=== PATIENT | female | born 1945 | race Caucasian/White ===

== ENCOUNTER 2017-02-09 07:02 | Observation (INO) | payer MEDICARE, BC ==
[2017-02-09] MEDS ORDERED: ATROPINE SULFATE 1 MG/10 ML SYR ONE (07:44)
[2017-02-09] MEDS ORDERED: EPINEPHrine 1:10,000 1 MG/10 ML SYR ONE (07:44)
[2017-02-09] MEDS ORDERED: FLUMAZENIL 0.5 MG/5 ML VIAL IV ONE (07:44)
[2017-02-09] MEDS ORDERED: NALOXONE HCL 0.4 MG/ML VIAL ONE (07:45)
[2017-02-09] MEDS ORDERED: DIPHENHYDRAMINE 50 MG/ML VIAL ONE (07:45)
[2017-02-09] MEDS ORDERED: LIDOCAINE HCL 2% 20 ML VIAL ONE (07:47)
--- NOTE | 2017-02-09 10:17 | RADIOLOGY REPORT ---
HISTORY: Chest pain post colonoscopy. COMPARISON: None. FINDINGS: 1 view of the chest obtained. There is no consolidation. There is no pleural effusion. There is no pneumothorax. Mild cardiomegaly is noted, the mediastinal silhouette is unremarkable. There is no abnormality of the pulmonary vessels. There is no focal lung parenchymal nodule. There is no bone l esion. There is subdiaphragmatic lucency which may represent distended colon or intraperitoneal air. IMPRESSION: Mild cardiomegaly, no acute lung parenchymal finding. Subdiaphragmatic lucency noted which may represent distended colon or free air, recommend CT of the a bdomen and pelvis. Critical results were communicated to Dr. Swan's nurse at 02/09/2017 10:09 AM. I have also left a ph one message on Dr. Swan's cellular phone. Final Electronic Signature: This report was electronically signed by Sin Flores MD, FACR on 2016 10:14 AM. josé /
--- NOTE | 2017-02-09 10:55 | RADIOLOGY REPORT ---
HISTORY: Evaluate for free air. COMPARISON: Chest x-ray same day TECHNIQUE: Frontal and lateral radiographs of the chest. FINDINGS: Subdiaphragmatic air is again identified consistent with pneumoperitoneum. Mildly distended pulmonary vasculature probably normal variant. No evidence of consolidation. Cardiomediastinal silhouette is t op limits of normal in size. Findings discussed with Elle Herrera nurse at 10:50 AM. IMPRESSION: Unchanged pneumoperitoneum; recommend CT abdomen and pelvis further evaluation. Final Electronic Signature: This report was electronically signed by Deepak Marie MD on 02/09/2017 10 :52 AM. zoila /
[2017-02-09] MEDS ORDERED: HOME MEDICATION LIST NEEDED 1 EA EACH MC ONE (12:03)
[2017-02-09] MEDS ORDERED: NORMAL SALINE 1,000 ML IV ONE (12:17)
--- NOTE | 2017-02-09 12:17 | CONSULTATION ---
DATE OF CONSULTATION: 02/09/17 CHIEF COMPLAINT: Abdominal pain after colonoscopy. HISTORY OF PRESENT ILLNESS: The patient had a colonoscopy done on a routine basis today because of a personal history of colon polyps. When the scope was inserted into the ascending colon barotrauma was noted after an uneventful intubation until that point. The barotrauma appeared to be minor and there were tiny linear hemorrhagic spots that were longitudinally arranged throughout the cecum and proximal ascending colon. There was no sign of a deep injury. Seeing this I presumed that collagenous colitis was present even though the patient had not complained of diarrhea preop and I took random colon biopsies. She also had a small colon polyp in the transverse colon which was resected. The transverse colon polyp was a 5 mm or so polyp that was resected with a cold snare in an uneventful manner. The scope was withdrawn. The patient did well and then when she woke up in recovery she complained of right sided right upper quadrant abdominal pain radiating up into the right chest. This lasted for 20 minutes or so and then went away and she has since then been asymptomatic. She has no shortness of breath, no abdominal pain, no pleurisy, and no fevers or chills. Suspecting an air leak I got a chest x-ray which confirmed some free air on the right side. PHYSICAL EXAMINATION GENERAL: The patient is alert and oriented times 3. She is in no acute distress. She does not seem to be drowsy from the medication received during the procedure. NECK: Supple. There is no crepitance anywhere in the neck or the shoulders. LUNGS: Clear to auscultation and percussion. CARDIAC: S1 and S2 are normal. There is a soft flow murmur at the left sternal border. ABDOMEN: She is entirely nontender. The bowel sounds are normal. She is a little tympanitic in the upper abdomen. EXTREMITIES: Warm, dry and perfuse. VITAL SIGNS: Normal. IMAGING: Chest x-ray shows free air present under the right hemidiaphragm. IMPRESSION: The patient probably has collagenous colitis and I think she probably has a microperforation due to this and due to barotrauma. I do not think it is likely that she has a significant spillage of intestinal contents but it is hard to say that for sure. RECOMMENDATION: We are going to give her Zofran. I spoke to Dr. Guido who will admit her and watch her in the hospital. If she shows any signs of sepsis or deterioration then will probably get a CAT scan and consider surgery. I think that the patient could be discharged tomorrow if she remains entirely asymptomatic. Copy to MD ELISA Mitchell
[2017-02-09 12:31] LABS: BASOPHILS 0.2 % (0.0-2.0); EOSINOPHILS 0.1 % (0.0-6.0); HEMATOCRIT 42.9 % (36.0-48.0); HEMOGLOBIN 14.9 g/dL (12.0-16.0); LYMPHOCYTES 6.6 % (20.0-40.0); LYMPHOCYTES# 1.2 X 10^3uL (0.8-3.8); MEAN CELL VOLUME 90.9 fL (80.0-100.0); MEAN CORPUS. HGB CONCENTRATION 34.8 g/dL (32.0-36.0); MEAN CORPUSCULAR HEMOGLOBIN 31.6 pg (29.0-35.0); MEAN PLATELET VOLUME 7.6 fL (7.4-10.4); MONOCYTES 3.3 % (2.0-10.0); MONOCYTES# 0.6 X 10^3uL (0.2-1.0); NEUTROPHILS 89.8 % (54.0-75.0); NEUTROPHILS# 15.8 X 10^3uL (2.6-6.7); RED BLOOD COUNT 4.72 X 10^6uL (4.20-6.10); RED CELL DISTRIBUTION WIDTH 12.7 % (11.5-14.5); WHITE BLOOD COUNT 17.6 X 10^3uL (3.9-10.7)
[2017-02-09 12:41] LABS: CALCIUM 9.3 mg/dL (8.4-10.2); POTASSIUM 4.4 mmol/L (3.5-5.1)
[2017-02-09] MEDS ORDERED: PIPERACILLIN /TAZO 2.25 GM/10 ML VIAL IV SCH (13:00)
[2017-02-09] MEDS ORDERED: NORMAL SALINE 1,000 ML IV SCH ×2 (13:00→19:01)
[2017-02-09] MEDS ORDERED: PIPERACILLIN /TAZO 3.375 GM/10 ML VIAL IV ONE (13:07)
[2017-02-09] MEDS ORDERED: NORMAL SALINE MINI-BAG+ 100 ML IV ONE (13:14)
[2017-02-09] MEDS: PIPERACILLIN /TAZO 3.375 GM/10 ML VIAL IV SCH ×2 (13:16→19:10)
[2017-02-09] MEDS: SODIUM CHLORIDE IV SCH ×2 (13:17→19:11)
[2017-02-09] MEDS: ACETAMINOPHEN 325 MG TABLET PO PRN ×2 (13:27→19:19)
--- NOTE | 2017-02-09 13:27 | RADIOLOGY REPORT ---
HISTORY: Evaluate for perforated viscus. COMPARISON: Chest x-ray same date 10:34 AM FINDINGS: 1 view of the chest obtained. There is no consolidation. There is no pleural effusion. There is no pneumothorax. Mild cardiomegaly is noted, the mediastinal silhouette is unremarkable. There is no abnormality of the pulmonary vessels. There is no focal lung parenchymal nodule. There is no bone l esion. Persistent intraperitoneal air is noted on the anterior x-ray. IMPRESSION: Intraperitoneal air noted similar to prior study. The referring physician is aware. Final Electronic Signature: This report was electronically signed by Sin Flores MD, FACR on 2016 1:25 PM. josé /
[2017-02-09 15:21] LABS: BASOPHIL# 0.1 X 10^3uL (0.0-0.1); BASOPHILS 0.7 % (0.0-2.0); EOSINOPHILS 0.1 % (0.0-6.0); HEMATOCRIT 40.6 % (36.0-48.0); HEMOGLOBIN 14.2 g/dL (12.0-16.0); LYMPHOCYTES# 0.9 X 10^3uL (0.8-3.8); MEAN CELL VOLUME 89.7 fL (80.0-100.0); MEAN CORPUS. HGB CONCENTRATION 35.1 g/dL (32.0-36.0); MEAN CORPUSCULAR HEMOGLOBIN 31.5 pg (29.0-35.0); MEAN PLATELET VOLUME 7.8 fL (7.4-10.4); MONOCYTES 4.7 % (2.0-10.0); MONOCYTES# 0.9 X 10^3uL (0.2-1.0); NEUTROPHILS 89.5 % (54.0-75.0); NEUTROPHILS# 16.4 X 10^3uL (2.6-6.7); RED BLOOD COUNT 4.52 X 10^6uL (4.20-6.10); RED CELL DISTRIBUTION WIDTH 12.5 % (11.5-14.5); WHITE BLOOD COUNT 18.3 X 10^3uL (3.9-10.7)
[2017-02-09] MEDS ORDERED: ENALAPRILAT DIHYDRATE 1.25 MG/ML VIAL IV PRN (15:58)
[2017-02-09] MEDS ORDERED: DEXTROSE 50% WATER 25 GM/50 ML SYR IV PRN (15:58)
--- NOTE | 2017-02-09 16:58 | PROGRESS NOTE:General Surgery ---
Assessment and Plan - Date of Encounter Date of Encounter: 02/09/17 (1) Perforated abdominal viscus Status: Acute Assessment and plan: Thus far stable. CXR at 1pm still shows free air. Current Visit: Yes - Time Spent With Patient Total time spent with greater than 50% in coordination of care (as documented) at patient's floor/unit and/or counseling patient: LORENZO: Gen Surg PN Subjective Patient reports: afebrile, bowel movement, feels better, other (has been NPO except for ice chips.), no blood in stool, no chest pain, no nausea, no no new complaints, no shortness of breath LORENZO: Gen Surgery PN Obj Exam - Latest Vital Signs and I&O Latest Vital Signs/I&O: Vital Signs Temp 37.1 C 02/09/17 15:00 Pulse 76 02/09/17 15:00 Resp 20 02/09/17 15:28 BP 131/76 02/09/17 15:00 Pulse Ox 90 02/09/17 15:28 Intake & Output 02/08/17 02/09/17 02/09/17 17:59 05:59 17:59 Weight 91.342 kg Other: Urine Appearance Clear Urine Color Yellow Voiding Method Toilet - Exam Abdomen exam: tender (mild at level of umbilicus on the right.), bowel sounds, soft, surgical scars (lap choly scars.) - Lab Labs: Laboratory Last Values WBC 18.3 X 10^3uL (3.9-10.7) H 02/09/17 15:00 RBC 4.52 X 10^6uL (4.20-6.10) 02/09/17 15:00 Hgb 14.2 g/dL (12.0-16.0) 02/09/17 15:00 Hct 40.6 % (36.0-48.0) 02/09/17 15:00 MCV 89.7 fL (80.0-100.0) 02/09/17 15:00 MCH 31.5 pg (29.0-35.0) 02/09/17 15:00 MCHC 35.1 g/dL (32.0-36.0) 02/09/17 15:00 RDW 12.5 % (11.5-14.5) 02/09/17 15:00 Plt Count 244 X 10^3uL (130-440) 02/09/17 15:00 MPV 7.8 fL (7.4-10.4) 02/09/17 15:00 Neutrophils % 89.5 % (54.0-75.0) H 02/09/17 15:00 Lymphocytes % 5.0 % (20.0-40.0) L 02/09/17 15:00 Eosinophils % 0.1 % (0.0-6.0) 02/09/17 15:00 Basophils % 0.7 % (0.0-2.0) 02/09/17 15:00 Neutrophils # 16.4 X 10^3uL (2.6-6.7) H 02/09/17 15:00 Lymphocytes # 0.9 X 10^3uL (0.8-3.8) 02/09/17 15:00 Monocytes 4.7 % (2.0-10.0) 02/09/17 15:00 Monocytes # 0.9 X 10^3uL (0.2-1.0) 02/09/17 15:00 Eosinophils # 0.0 X 10^3uL (0.0-0.4) 02/09/17 15:00 Basophils # 0.1 X 10^3uL (0.0-0.1) 02/09/17 15:00 Sodium 138 mmol/L (137-145) 02/09/17 12:21 Potassium 4.4 mmol/L (3.5-5.1) 02/09/17 12:21 Chloride 100 mmol/L (98-107) 02/09/17 12:21 Carbon Dioxide 24 mmol/L (22-30) 02/09/17 12:21 BUN 23 mg/dL (7-17) H 02/09/17 12:21 Creatinine 1.0 mg/dL (0.5-1.0) 02/09/17 12:21 GFR Calculation 58 mL/min 02/09/17 12:21 Glucose 118 mg/dL (70-100) H 02/09/17 12:21 Calcium 9.3 mg/dL (8.4-10.2) 02/09/17 12:21 Quality Questions - VTE Prophylaxis Assessment VTE Present on Admission?: No Patient at risk for venous thromboembolism?: Yes VTE Risk Level: Low Risk Pharmaceutical VTE prophylaxis contraindication reason: not indicated Mechanical VTE prophylaxis contraindication reason: not indicated
[2017-02-09] MEDS: INSULIN LISPRO 100 UNIT/ML ML SUBCUT SCH (18:00)
[2017-02-09] MEDS ORDERED: NORMAL SALINE 100 ML IV ONE (19:17)
[2017-02-09] MEDS ORDERED: FAMOTIDINE IN SALINE, ISO-OSM 20 MG/50 ML PIGGYBACK IV SCH (21:00)
[2017-02-10] MEDS: INSULIN LISPRO 100 UNIT/ML ML SUBCUT SCH ×2 (01:31→07:34)
[2017-02-10] MEDS: PIPERACILLIN /TAZO 3.375 GM/10 ML VIAL IV SCH (01:32)
[2017-02-10] MEDS: SODIUM CHLORIDE IV SCH (01:32)
[2017-02-10] MEDS ORDERED: NORMAL SALINE 100 ML IV ONE ×2 (01:48→08:22)
[2017-02-10] MEDS: ACETAMINOPHEN 325 MG TABLET PO PRN (02:26)
[2017-02-10 06:23] LABS: BASOPHILS 0.4 % (0.0-2.0); EOSINOPHILS 1.1 % (0.0-6.0); EOSINOPHILS# 0.1 X 10^3uL (0.0-0.4); HEMATOCRIT 41.8 % (36.0-48.0); HEMOGLOBIN 14.8 g/dL (12.0-16.0); LYMPHOCYTES 19.2 % (20.0-40.0); LYMPHOCYTES# 1.9 X 10^3uL (0.8-3.8); MEAN CELL VOLUME 89.9 fL (80.0-100.0); MEAN CORPUS. HGB CONCENTRATION 35.4 g/dL (32.0-36.0); MEAN CORPUSCULAR HEMOGLOBIN 31.9 pg (29.0-35.0); MEAN PLATELET VOLUME 7.8 fL (7.4-10.4); MONOCYTES 5.2 % (2.0-10.0); MONOCYTES# 0.5 X 10^3uL (0.2-1.0); NEUTROPHILS 74.1 % (54.0-75.0); NEUTROPHILS# 7.5 X 10^3uL (2.6-6.7); RED BLOOD COUNT 4.65 X 10^6uL (4.20-6.10); RED CELL DISTRIBUTION WIDTH 12.7 % (11.5-14.5)
[2017-02-10 06:26] LABS: CALCIUM 9.3 mg/dL (8.4-10.2); CREATININE 1.2 mg/dL (0.5-1.0); POTASSIUM 4.2 mmol/L (3.5-5.1)
[2017-02-10 06:43] VITALS: BP 144/96; PULSE 73; RESP 14; TEMP 98.8; O2SAT 90
--- NOTE | 2017-02-10 07:31 | HISTORY & PHYSICAL ---
DATE OF VISIT: 02/09/17 INFECTION CONTROL NURSE: Alvaro Montano MD REFERRING PHYSICIAN: Guillermo Guido MD PRIMARY CARE PHYSICIAN: Zulema Hodge MD REASON FOR CONSULTATION: Colonic perforation and comorbid management. HISTORY OF PRESENT ILLNESS: The patient is a 71-year-old lady with past medical history notable for irritable bowel sclerosis with echocardiogram 01/2016 showing sclerosis without stenosis. She has obesity, chronic kidney disease, type 2 diabetes, hypertension, dyslipidemia, and a history of colonic polyps and underwent colonoscopy after bowel preparation this morning. Dr. Swan performed the procedure and removed a polyp from the right descending colon right at the hepatic flexure. Patient had right upper quadrant pain, post procedure and chest x-ray demonstrated fluid interposed between the diaphragm and liver with a lateral view corroborating intraabdominal free gases. A colonic scope was performed with CO2 expansion of the bowel rather than air. Patient is currently NPO. She currently has no cough, cold, congestion or fever. She has no nausea and is actually hungry. She has mild ache in the right upper quadrant. She has passed flatus and no other abdominal pain. There is no vomiting. No dysuria. Remainder of review of systems is otherwise unremarkable. There has been no rectal bleeding. Again, patient did undergo a single polypectomy/biopsy. PAST MEDICAL HISTORY 1. Irritable bowel sclerosis. 2. Obesity. 3. Chronic kidney disease with baseline creatinine of 1.3 and current 1.1. 4. Diabetes mellitus type 2 controlled on Metformin. 5. Essential hypertension. 6. History of asymptomatic hematuria. 7. Dyslipidemia. 8. Urinary incontinence. PAST SURGICAL HISTORY 1. Cholecyst[place] [address] Guido. 2. Cataract surgery by Dr. Braun. 3. Bartholin cyst treatment by Dr. Voss. HEALTH CARE MAINTENANCE: Colonoscopy in 2011 with a tubular adenoma. Repeat C- scope was due this year and rationale for current study. ALLERGIES: No known drug allergies. MEDICATIONS Baby aspirin once daily. Calcium carbonate 500 mg 1 tablet twice daily. Metformin 500 mg twice daily. Zocor 20 mg q.h.s. Vitamin D3 1000 International Units once daily. Zestoretic 20/25 mg tablets, 1 tablet daily. FAMILY HISTORY: Diabetes and coronary disease including hypertension and stroke in her father who at age 71. Her mother had hypertension and from a stroke at age 78. No family history of breast or colon cancer. Sister with hypertension and depression, as well as type 2 diabetes mellitus. Another sister at age 33 from suicide. SOCIAL HISTORY: She drinks 1 daniella every 6 months. 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 She has been since 1960. She is P2, G2 with normal spontaneous vaginal deliveries x2 in 1961 and 1963 with 5 grandchildren, although 1 grandson at age 29 in a motor vehicle accident. She resides largely in [place] but also resides in [place] 3 months out of the year in September, October and November. She is a lifelong nonsmoker. REVIEW OF SYSTEMS: Per History of Present Illness. PHYSICAL EXAMINATION VITAL SIGNS: Temperature 37.1, blood pressure is in the 130-160s/70-80s, with heart rates in the 70-80s and respiratory rate 16-20. She is saturating 90% on room air and rates her pain at 2-4/10. She is 91 kilograms. GENERAL: She is pleasant.Seated at side of the bed but was able to lay supine for portions of the examination. There is No jaundice, anemia, cyanosis, clubbing or lymphadenopathy. NECK: Supple no masses or bruits. CARDIAC: With murmur, most prominent in the right upper sternal border without radiation to her right carotid although it is present and notable in the Erbs point and left lower sternal border as well. There is no right ventricular heave. PMI is nondisplaced and no further abnormal cardiac sounds including no gallop noted. RESPIRATORY: Good air entry in the left base, decreased in the right base but no adventitial sounds. ABDOMEN: Protuberant. Bowel sounds are decreased but present. She is tender in the right upper quadrant although without guarding or peritonitis. Remainder of the abdominal exam is unremarkable. No masses are identified. LOWER EXTREMITIES: She has 2+ dorsal pedal pulses and no edema. LABS: Markedly elevated white count at 18.3, hemoglobin at 14.2, MCV of 89 and platelet count of 244. White count is 90% neutrophils. Electrolytes show sodium of 138, potassium 4.4, chloride of 100, bicarb of 24, BUN of 23 and creatinine of 1.0. Glucose is 118. Calcium is 9.3. ASSESSMENT/PLAN 1. Bowel perforation: Likely a micro perforation related to her biopsy and was no trauma related with a fecal filled colon but was after GoLYTELY preparation and much lower risk for complications. Agree with conservative management. Patient is NPO on Pepcid and IV fluids and has switched most of her medications to IV formulations if feasible. Surrogate markers for infection and inflammation have been elevated with a white count of 18,000 largely neutrophils , will trend this. Patient has been started empirically on Zosyn for aerobic coverage as well as gram negatives. 2. Leukocytosis: Likely related to #1 again. Review of management of complications of colonoscopy by [facility] [place] in surgical treatment and evidence based problem oriented problems from 2000. This recommendation was for conservative management in perforations related to endoscopies in a clean procedure without fecal containing colon and unrelated to trauma. Have a lower threshold for adding an NG tube if needed for decompression. 3. Aortic sclerosis: Murmur is notable on examination, slightly atypical for aortic sclerosis, heard prominently in the Erbs point left lower sternal border but without further radiation and preserved stroke pressure. 4. Chronic kidney disease: Likely related to diabetes and hypertension. Is mild enough, it will not need medications currently. 5. Diabetes: Will hold Metformin and cover with a sliding scale insulin. 6. Dyslipidemia: Patient will continue on Zocor once able to take p.o. intake. 7. Patient is a full code. 8. Have switched her Zestoretic to IV Vasotec, added IV Pepcid. Patient already tolerating Zosyn. Has been started on sliding scale insulin. MTDD
[2017-02-10] MEDS ORDERED: PIPERACILLIN /TAZO 3.375 GM/10 ML VIAL IV SCH (08:00)
[2017-02-10] MEDS ORDERED: SODIUM CHLORIDE IV SCH (08:00)
--- NOTE | 2017-02-10 09:10 | PROGRESS NOTE: IM APSO ---
Assessment and Plan - Date of Encounter Date of Encounter: 02/10/17 (1) Perforated abdominal viscus Status: Acute Assessment and plan: clean perforation, clinically well Current Visit: Yes (2) Hypertension Status: Chronic Assessment and plan: resume lisinopril/hctz Current Visit: Yes (3) Type 2 diabetes mellitus Status: Chronic Assessment and plan: resume metformin when able to take regular diet (3-4 days) Current Visit: Yes (4) Dyslipidemia Status: Chronic Assessment and plan: resume Zocor Current Visit: Yes (5) Chronic kidney disease Status: Chronic Current Visit: Yes - Time Spent With Patient Total time spent with greater than 50% in coordination of care (as documented) at patient's floor/unit and/or counseling patient: 25 - 35 minutes (Would recommend Augmentin, f/u next week with Dr. Hodge or covering PCP. Clear diet.) IM: PN Subjective General: good appetite, no fatigue, no fever, no chills Cardiovascular: no chest pain, no chest pressure Respiratory: no cough Gastrointestinal: abdominal pain (RUQ pain very mild (markedly improved and only taking Tylenol-last at 0200)), flatus, no nausea, no vomiting, no diarrhea Genitourinary: no dysuria Musculoskeletal: no pain Integumentary: no rashes IM: PN Objective Exam - I&O/Vital Signs I&O: Intake & Output 02/09/17 02/10/17 02/10/17 21:59 05:59 13:59 Intake Total 690 100 Output Total 350 300 Balance 340 -200 Intake: Oral 690 100 Output: Urine 350 300 Other: Urine Appearance Clear Clear Urine Color Pale Yellow Yellow Stool Size Small Stool Characteristics Liquid Voiding Method Toilet Toilet Vital Signs: Last Vital Signs Temp 37.1 C 02/10/17 06:40 Pulse 73 02/10/17 06:40 Resp 14 02/10/17 06:40 BP 144/96 02/10/17 06:40 Pulse Ox 90 02/10/17 06:40 Oxygen Flow Rate 0 Oxygen Delivery Method Room Air - Constitutional General appearance: Present: obese - Head Head exam: Present: atraumatic - Eye Eye exam: Present: EOMI - ENT ENT exam: Present: mucous membranes moist - Neck Neck exam: Present: full ROM. Absent: lymphadenopathy - Respiratory Respiratory exam: Present: CTAB - Cardiovascular Cardiovascular exam: Present: RRR - GI/Abdominal GI/Abdominal exam: Present: normal bowel sounds, soft, tenderness (ruq no peritonitis) - Extremities Exam Extremities exam: Absent: edema - Lab Labs: Laboratory Last Values WBC 10.0 X 10^3uL (3.9-10.7) 02/10/17 06:10 RBC 4.65 X 10^6uL (4.20-6.10) 02/10/17 06:10 Hgb 14.8 g/dL (12.0-16.0) 02/10/17 06:10 Hct 41.8 % (36.0-48.0) 02/10/17 06:10 MCV 89.9 fL (80.0-100.0) 02/10/17 06:10 MCH 31.9 pg (29.0-35.0) 02/10/17 06:10 MCHC 35.4 g/dL (32.0-36.0) 02/10/17 06:10 RDW 12.7 % (11.5-14.5) 02/10/17 06:10 Plt Count 275 X 10^3uL (130-440) 02/10/17 06:10 MPV 7.8 fL (7.4-10.4) 02/10/17 06:10 Neutrophils % 74.1 % (54.0-75.0) 02/10/17 06:10 Lymphocytes % 19.2 % (20.0-40.0) L 02/10/17 06:10 Eosinophils % 1.1 % (0.0-6.0) 02/10/17 06:10 Basophils % 0.4 % (0.0-2.0) 02/10/17 06:10 Neutrophils # 7.5 X 10^3uL (2.6-6.7) H 02/10/17 06:10 Lymphocytes # 1.9 X 10^3uL (0.8-3.8) 02/10/17 06:10 Monocytes 5.2 % (2.0-10.0) 02/10/17 06:10 Monocytes # 0.5 X 10^3uL (0.2-1.0) 02/10/17 06:10 Eosinophils # 0.1 X 10^3uL (0.0-0.4) 02/10/17 06:10 Basophils # 0.0 X 10^3uL (0.0-0.1) 02/10/17 06:10 Sodium 144 mmol/L (137-145) 02/10/17 06:10 Potassium 4.2 mmol/L (3.5-5.1) 02/10/17 06:10 Chloride 108 mmol/L (98-107) H 02/10/17 06:10 Carbon Dioxide 22 mmol/L (22-30) 02/10/17 06:10 BUN 18 mg/dL (7-17) H 02/10/17 06:10 Creatinine 1.2 mg/dL (0.5-1.0) H 02/10/17 06:10 GFR Calculation 47 mL/min 02/10/17 06:10 Glucose 145 mg/dL (70-100) H 02/10/17 06:10 Calcium 9.3 mg/dL (8.4-10.2) 02/10/17 06:10 (5) Chronic kidney disease Qualifiers: Chronic kidney disease stage: stage 2 (mild) Qualified Code(s): N18.2 - Chronic kidney disease, stage 2 (mild)
--- NOTE | 2017-02-10 09:11 | DC SUMMARY: Gen Surgery Note ---
Discharge Summary: Surg/OB Provider: Date of Admission: 02/09/17 Admitting Provider: MARYANN WAHL MD Attending Provider: MARYANN WAHL MD Discharging Provider: MARYANN WAHL MD Primary Care Provider: Discharge Date: 02/10/17 - Diagnosis (1) Perforated abdominal viscus Status: Acute Hospital Course: Ms. ROD is a 71 year old female admitted for micro perforation following colonoscopy yesterday. She was pain free by she was on the floor yesterday afternoon. She continued to do well last night and today. She is tolerating a clear liquid diet and will be discharged today. Discharge - Patient/Caregiver Discharge Instructions Activity Level: As tolerated Diet: clear liquid diet today. Start regular food on monday. Overall discharge status: patient is progressing back to baseline Disposition: HOME, SELF-CARE Gen Surgery: Discharge Exam - Latest Vital Signs and I&O Latest Vital Signs/I&O: Vital Signs Temp 37.1 C 02/10/17 06:40 Pulse 73 02/10/17 06:40 Resp 14 02/10/17 06:40 BP 144/96 02/10/17 06:40 Pulse Ox 90 02/10/17 06:40 Intake & Output 02/09/17 02/10/17 02/10/17 17:59 05:59 17:59 Intake Total 790 Output Total 650 Balance 140 Weight 91.342 kg Intake: Oral 790 Output: Urine 650 Other: Urine Appearance Clear Clear Urine Color Yellow Yellow Stool Size Small Stool Characteristics Liquid Voiding Method Toilet Toilet - Exam Abdomen exam: bowel sounds, soft, surgical scars (lap choly scars.) Discharge Summary Data - Medication History Medication History: Home Medications Calcium Carbonate [Tums X-Str] 600 mg PO BID 02/09/17 Cholecalciferol [Vitamin D*] 1,000 units PO DAILY 02/09/17 Lisinopril/Hydrochlorothiazide [Zestoretic 20-25 mg Tablet] 20 - 25 mg PO DAILY 02/09/17 Simvastatin [Simvastatin*] 20 mg PO HS 02/09/17 aspirin EC [Aspirin EC*] 81 mg PO DAILY 02/09/17 metFORMIN [Glucophage*] 500 mg PO BID 02/09/17 Inpatient Medications 02/09/17 13:20 Acetaminophen [Tylenol] 650 mg PO Q6H PRN 02/09/17 15:58 Dextrose 50% Water [D50%] 50 gm IV PRN PRN Enalaprilat Dihydrate [Vasotec] 0.625 mg IV Q6H PRN 02/09/17 17:00 Insulin Lispro [HumaLOG] See Protocol SUBCUT ACHS 02/09/17 19:01 Normal Saline [Sodium Chloride 0.9% 1000 ml] 1,000 ml IV CONT 02/09/17 21:00 Famotidine in Saline, Iso-Osm [Pepcid Injection] 20 mg IV HS 02/10/17 08:00 Normal Saline Mini-Bag+ [Sodium Chloride 100 ml Mini-Bag Plus] 100 ml IV Q6H Piperacillin /Tazo [Zosyn] 3.375 gm IV Q6H Procedures and tests throughout hospitalization: Completed Lab Orders 02/09/17 12:21 BASIC METABOLIC PANEL [CHEM] Urgent CBC AUTO DIF, MDIF/RMOR IF IND [HEM] Urgent 02/09/17 15:00 CBC AUTO DIF, MDIF/RMOR IF IND [HEM] Routine 02/10/17 06:10 BMP [BASIC METABOLIC PANEL] [CHEM] AMDRAW CBC AUTO DIF, MDIF/RMOR IF IND [HEM] AMDRAW Completed Imaging Orders 02/09/17 09:00 CHEST; SINGLE VIEW 98036 [RAD] Stat 02/09/17 10:25 [id number] [CXR 2V 68375] [RAD] Stat 02/09/17 13:00 [id number] [CHEST; SINGLE VIEW 37661] [RAD] Urgent Pending Orders 02/09/17 12:03 Admit: Observation Routine Activity: Ambulate TID Assess pulse oximetry ROOM AIR (ONCE) Resuscitation Status Routine Titrate Oxygen TITRATE TO >90% Vital Signs ROUTINE VITALS (Q4H) [facility] Helper Consult [CM] Routine 02/09/17 13:20 Acetaminophen [Tylenol] 650 mg PO Q6H PRN 02/09/17 15:58 Finger Stick Blood Sugar ACHS FINGER STICK Hypoglycemia treatment... PER PROTOCOL Notify Physician . Dextrose 50% Water [D50%] 50 gm IV PRN PRN Enalaprilat Dihydrate [Vasotec] 0.625 mg IV Q6H PRN 02/09/17 17:00 Insulin Lispro [HumaLOG] See Protocol SUBCUT ACHS 02/09/17 19:01 Normal Saline [Sodium Chloride 0.9% 1000 ml] 1,000 ml IV CONT 02/09/17 21:00 Famotidine in Saline, Iso-Osm [Pepcid Injection] 20 mg IV HS 02/09/17 Dinner Clear Liquid [DIET] 02/10/17 08:00 Normal Saline Mini-Bag+ [Sodium Chloride 100 ml Mini-Bag Plus] 100 ml IV Q6H Piperacillin /Tazo [Zosyn] 3.375 gm IV Q6H Labs on day of discharge: Labs from last 24 hours 02/10/17 02/09/17 02/09/17 06:10 15:00 12:21 WBC 10.0 18.3 H 17.6 H RBC 4.65 4.52 4.72 Hgb 14.8 14.2 14.9 Hct 41.8 40.6 42.9 MCV 89.9 89.7 90.9 MCH 31.9 31.5 31.6 MCHC 35.4 35.1 34.8 RDW 12.7 12.5 12.7 Plt Count 275 244 287 MPV 7.8 7.8 7.6 Neutrophils % 74.1 89.5 H 89.8 H Lymphocytes % 19.2 L 5.0 L 6.6 L Eosinophils % 1.1 0.1 0.1 Basophils % 0.4 0.7 0.2 Neutrophils # 7.5 H 16.4 H 15.8 H Lymphocytes # 1.9 0.9 1.2 Monocytes 5.2 4.7 3.3 Monocytes # 0.5 0.9 0.6 Eosinophils # 0.1 0.0 0.0 Basophils # 0.0 0.1 0.0 Sodium 144 Potassium 4.2 Chloride 108 H Carbon Dioxide 22 BUN 18 H Creatinine 1.2 H GFR Calculation 47 Glucose 145 H Calcium 9.3 02/09/17 12:21 WBC RBC Hgb Hct MCV MCH MCHC RDW Plt Count MPV Neutrophils % Lymphocytes % Eosinophils % Basophils % Neutrophils # Lymphocytes # Monocytes Monocytes # Eosinophils # Basophils # Sodium 138 Potassium 4.4 Chloride 100 Carbon Dioxide 24 BUN 23 H Creatinine 1.0 GFR Calculation 58 Glucose 118 H Calcium 9.3
== END 2017-02-10 09:26 | disposition home or self-care (01) ==
LOC: GI 07:02 → IN 10:55
PROVIDERS: ADMIT Surgery; ATTEND Surgery
DX: K91.72 Accidental puncture and laceration of a digestive system organ or structure during other procedure (principal); D72.829 Elevated white blood cell count, unspecified; D12.3 Benign neoplasm of transverse colon; D12.5 Benign neoplasm of sigmoid colon; E11.22 Type 2 diabetes mellitus with diabetic chronic kidney disease; I12.9 Hypertensive chronic kidney disease with stage 1 through stage 4 chronic kidney disease, or unspecified chronic kidney disease; Q25.1 Coarctation of aorta; E66.9 Obesity, unspecified; E78.5 Hyperlipidemia, unspecified; R32 Unspecified urinary incontinence; Z79.899 Other long term (current) drug therapy
CPT/HCPCS: 36415; 45380; 71010; 71020; 80048; 810; 85025; 96365; 96366; 96367; 99217; 99219; G0378; J0461; J1200; J2543; J2550; J7030